=== PATIENT | male | born 1975 ===

== ENCOUNTER 2017-11-05 16:02 | Emergency (ER) | payer BC ==
--- NOTE | 2017-11-05 17:12 | ED PDOC ---
HPI: General Adult Time Seen by Provider: 11/05/17 16:38 Chief Complaint (Nursing): Flu-like Symptoms Chief Complaint (Provider): Flu-like Symptoms History Per: Patient History/Exam Limitations: no limitations Onset/Duration Of Symptoms: Days Current Symptoms Are (Timing): Still Present Additional Complaint(s): 41 year old male presents to the emergency department with a complaint of flu- like symptoms that started 11/02/2017. Patient has a cough, productive sputum (yellow), sore throat, runny nose, congestion, fever, body aches, and chills. Reports intermittently taking Ibuprofen with some relief but decided to come to the emergency department because symptoms are persistent. States he has 3 other family members with the same symptoms. Denies vomiting, diarrhea, or any recent travel. PMD: none Past Medical History Reviewed: Historical Data, Nursing Documentation, Vital Signs Vital Signs: Last Vital Signs Temp 101 F H 11/05/17 18:15 Pulse 100 H 11/05/17 18:15 Resp 18 11/05/17 18:15 BP 119/68 11/05/17 16:27 Pulse Ox 98 11/05/17 18:15 - Medical History PMH: No Chronic Diseases - Surgical History Surgical History: No Surg Hx - Family History Family History: States: Unknown Family Hx - Living Arrangements Living Arrangements: With Family - Home Medications Home Medications: Ambulatory Orders Medication Instructions Recorded Benzonatate [Tessalon Perle] 200 mg PO TID PRN #30 capsule 11/05/17 Dextromethorphan Hb/Doxylamine 10 ml PO HS #240 ml 11/05/17 [Nighttime Cough Liquid] Ibuprofen [Motrin Tab] 600 mg PO Q8 PRN #30 tab 11/05/17 - Allergies Allergies/Adverse Reactions: Allergies Allergy/AdvReac Type Severity Reaction Status Date / Time No Known Allergies Allergy Verified 11/05/17 16:27 Review of Systems ROS Statement: Except As Marked, All Systems Reviewed And Found Negative (As per HPI, otherwise negative) Constitutional: Positive for: Fever, Chills, Other (Body aches) ENT: Positive for: Nose Discharge, Nose Congestion, Throat Pain (Sore throat) Respiratory: Positive for: Cough, Sputum (yellow) Gastrointestinal: Negative for: Vomiting, Diarrhea Physical Exam - Reviewed Nursing Documentation Reviewed: Yes Vital Signs Reviewed: Yes - Physical Exam Appears: Positive for: Non-toxic, In Acute Distress (febrile) Head Exam: Positive for: ATRAUMATIC, NORMOCEPHALIC Skin: Positive for: Warm, Dry Eye Exam: Positive for: EOMI, PERRL ENT: Positive for: Pharynx Is (erythematous with some petechia soft palate), Pharyngeal Erythema. Negative for: Tonsillar Exudate, Tonsillar Swelling Neck: Positive for: Painless ROM, Supple Cardiovascular/Chest: Positive for: Regular Rate, Rhythm, Chest Non Tender. Negative for: Murmur Respiratory: Positive for: Normal Breath Sounds. Negative for: Wheezing, Respiratory Distress Gastrointestinal/Abdominal: Positive for: Soft. Negative for: Tenderness Back: Positive for: Normal Inspection. Negative for: Decreased ROM Extremity: Positive for: Normal ROM. Negative for: Deformity Lymphatic: Negative for: Adenopathy Neurologic/Psych: Positive for: Alert. Negative for: Motor/Sensory Deficits - ECG O2 Sat by Pulse Oximetry: 100 (RA) Pulse Ox Interpretation: Normal Medical Decision Making Medical Decision Making: Time: 164 Initial impression: Febrile illness and upper respiratory infection (URI) symptoms differential include but not limited to influenza, pneumonia, and upper respiratory infection. Initial plan: --Tylenol 975 mg PO --Toradol 30 mg IM --Chest x-ray --Reevaluation Time: 1713 --Chest x-ray FINDINGS: LINES AND TUBES: None. LUNG AND PLEURA: The lungs are hyperinflated and there is peribronchial thickening with chronic changes in both lungs. No focal consolidation. HEART AND MEDIASTINUM: The heart is not enlarged. The hilar and mediastinal contours are within normal limits. SKELETAL STRUCTURES: The bony structures are within normal limits for the patient's age. VISUALIZED UPPER ABDOMEN: Normal. OTHER FINDINGS: None. IMPRESSION: No active pulmonary disease. COPD. Time: 172 Upon provider reevaluation patient is feeling better, is medically stable, and requires no further treatment in the ED at this time. Patient will be discharged home with Rx for Tessalon Perle 200 mg, Nighttime Cough Liquid, and Motrin 600 mg. Counseling was provided and all questions were answered regarding diagnosis and need for follow up with referred clinic. There is agreement to discharge plan. Return if symptoms persist or worsen. Clinical Impression: Influenza-like symptoms Scribe Attestation: Documented by Brinda Kenyon, acting as a scribe for Carol J Noble MD. Provider Scribe Attestation: All medical record entries made by the Scribe were at my direction and personally dictated by me. I have reviewed the chart and agree that the record accurately reflects my personal performance of the history, physical exam, medical decision making, and the department course for this patient. I have also personally directed, reviewed, and agree with the discharge instructions and disposition. Disposition - Clinical Impression Clinical Impression: Influenza-like symptoms Counseled Patient/Family Regarding: Studies Performed, Diagnosis, Need For Followup, Rx Given - Disposition Referrals: [facility] [Outside] Disposition: Routine/Home Disposition Time: 17:23 Condition: STABLE Additional Instructions: NECESITA DESCANSAR Y BEBER MUCHOS SUEROS AIDA TYLENOL O IBUPROFEN PARA DOLOR O FIEBRE VISITA A LA CLINICA EN 5-7 MCELROY A CHEQAR DE NUEVO REGRESA SI [facility] [place] Prescriptions: Benzonatate [Tessalon Perle] 200 mg PO TID PRN #30 capsule PRN Reason: Cough Dextromethorphan Hb/Doxylamine [Nighttime Cough Liquid] 10 ml PO HS #240 ml Ibuprofen [Motrin Tab] 600 mg PO Q8 PRN #30 tab PRN Reason: PAIN OR FEVER Instructions: Influenza (ED) Forms: [facility] ED School/Work Excuse Print Language: WELSH
--- NOTE | 2017-11-05 17:16 | RAD ---
HISTORY: COMPARISON: No prior. TECHNIQUE: Chest PA and lateral FINDINGS: LINES AND TUBES: None. LUNG AND PLEURA: The lungs are hyperinflated and there is peribronchial thickening with chronic changes in both lungs. No focal consolidation. HEART AND MEDIASTINUM: The heart is not enlarged. The hilar and mediastinal contours are within normal limits. SKELETAL STRUCTURES: The bony structures are within normal limits for the patient's age. VISUALIZED UPPER ABDOMEN: Normal. OTHER FINDINGS: None. IMPRESSION: No active pulmonary disease. COPD.
[2017-11-05 18:51] VITALS: BP 132/70; PULSE 96; RESP 16; TEMP 100.5; O2SAT 98
== END 2017-11-05 18:51 | disposition home or self-care (01) ==
LOC: H.ER 16:02
DX: J18.9 Pneumonia, unspecified organism (principal)
CPT/HCPCS: 71046; 96372; 99283; J1885

== ENCOUNTER 2018-05-16 22:36 | Emergency (ER) | payer BC ==
[2018-05-16 23:09] VITALS: BP 106/69; PULSE 73; RESP 16; TEMP 98.1; O2SAT 98
--- NOTE | 2018-05-16 23:32 | ED PDOC ---
Lower Extremity Pain/Injury Time Seen by Provider: 05/16/18 23:13 Chief Complaint (Nursing): Lower Extremity Problem/Injury History Per: Patient, Family ( and son (Syl over the phone)) Additional Complaint(s): Pt. states for the past 2 years (contrary to triage note) he's had atraumatic R knee pain. 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 Pt. states he's been taking Naproxen from his brother for the pain but states once medication wears off pain returns. Denies trauma, numbness, tingling , rash, calf pain, SOB, chest pain, fever. Past Medical History Vital Signs: Last Vital Signs Temp 98.1 F 05/16/18 23:05 Pulse 73 05/16/18 23:05 Resp 16 05/16/18 23:05 BP 106/69 05/16/18 23:05 Pulse Ox 98 05/16/18 23:05 - Family History Family History: States: Unknown Family Hx - Home Medications Home Medications: Ambulatory Orders Medication Instructions Recorded Benzonatate [Tessalon Perle] 200 mg PO TID PRN #30 capsule 11/05/17 Dextromethorphan Hb/Doxylamine 10 ml PO HS #240 ml 11/05/17 [Nighttime Cough Liquid] Ibuprofen [Motrin Tab] 600 mg PO Q8 PRN #30 tab 11/05/17 Naproxen [Naprosyn] 500 mg PO BID PRN #14 tab 05/16/18 - Allergies Allergies/Adverse Reactions: Allergies Allergy/AdvReac Type Severity Reaction Status Date / Time No Known Allergies Allergy Verified 05/16/18 23:05 Wells Criteria for PE - Wells Criteria for Pulmonary Embolism Clinical Signs and Symptoms of DVT: No P.E is #1 Diagnosis, or Equally Likely: No Heart Rate >100: No Immobilization at least 3 days;Surgery previous 4 weeks: No Previous, objectively diagnosed PE or DVT: No Hemoptysis: No Malignancy w/treatment within 6 months, or palliative: No Total Score: 0 Review of Systems ROS Statement: Except As Marked, All Systems Reviewed And Found Negative Physical Exam - Physical Exam Appears: Positive for: Well, Non-toxic, No Acute Distress Skin: Positive for: Normal Color, Warm. Negative for: Rash Eye Exam: Positive for: Normal appearance Pulses-Dorsalis Pedis (L): 2+ Pulses-Dorsalis Pedis (R): 2+ Extremity: Positive for: Normal ROM (FROM actively of both knees), Other (b/l knees without tenderness, swelling, deformity, warmth, erythema, or break in skin integrity). Negative for: Pedal Edema (b/l), Calf Tenderness (b/l) Neurologic/Psych: Positive for: Alert, Oriented, Gait (steady, unassisted) - ECG O2 Sat by Pulse Oximetry: 98 - Progress ED Course And Treament: X-rays were offered but pt. refused and states he will f/u with ortho instead. Advised to return to ED immediately if pain worsens. R knee placed in farrha winchester dressing by PA. Disposition - Clinical Impression Clinical Impression: Knee pain - Patient ED Disposition Is Patient to be Admitted: No - Disposition Referrals: [facility] [Outside] Ashley Carbajal MD [Staff Provider] - Disposition: Routine/Home Disposition Time: 23:20 Condition: STABLE Additional Instructions: ANDRE BUCKNER, thank you for letting us take care of you today. Your provider was Reza Mosquera MD and you were treated for B/L KNEE PAIN. The emergency medical care you received today was directed at your acute symptoms. If you were prescribed any medication, please fill it and take as directed. It may take several days for your symptoms to resolve. Return to the Emergency Department if your symptoms worsen, do not improve, or if you have any other problems. Please contact your doctor or call one of the physicians/clinics you have been referred to that are listed on the Patient Visit Information form that is included in your discharge packet. Bring any paperwork you were given at discharge with you along with any medications you are taking to your follow up visit. Our treatment cannot replace ongoing medical care by a primary care provider outside of the emergency department. Thank you [facility] of your care today. If you had an X-Ray or CT scan: A Radiologist will review the ED reading if any change in treatment is needed we will contact you. If you had a blood, urine, or wound culture: It will take several days for the results, if any change in treatment is needed we will contact you. If you had an STI test: It will take 48 hours for the results. Please call after 1 week if you have not heard back. Prescriptions: Naproxen [Naprosyn] 500 mg PO BID PRN #14 tab PRN Reason: Pain Instructions: Knee Pain (DC) Forms: [employer] (Telugu), [facility] ED School/Work Excuse Print Language: MONTSERRATIAN
== END 2018-05-16 23:51 | disposition home or self-care (01) ==
LOC: H.ER 22:36
DX: M25.561 Pain in right knee (principal)
CPT/HCPCS: 96372; 99283; J1885